=== PATIENT | female | born 1975 ===

== ENCOUNTER 2018-04-24 11:16 | Emergency (ER) | payer OTHER ==
[2018-04-24] MEDS ORDERED: Sodium Chloride 0.9% 1,000 ML IV STA ×2 (11:53→14:19)
--- NOTE | 2018-04-24 12:18 | ED PDOC ---
Arrival/HPI - General Chief Complaint: Abdominal Pain Time Seen by Provider: 04/24/18 11:42 Historian: Patient - History of Present Illness Narrative History of Present Illness (Text): 04/24/18 12:16 42yo female with pmhx of NIDDM, Asthma who present with complaint of right flank pain with associated nausea, vomiting and diarrhea x 3days. Notes that the last episode of diarrhea was 3days ago and vomiting was yesterday. Reports urinary frequency and pressure with urination. Denies fever,r chills, chest pain , SOB, hematuria, vaginal discharge, any other complaint. Past Medical History - Provider Review Nursing Documentation Reviewed: Yes - Infectious Disease Hx of Infectious Diseases: None - Reproductive Menopause: No - Cardiac Hx Cardiac Disorders: No - Pulmonary Hx Asthma: Yes - Hematological/Oncological Hx Anemia: Yes Other/Comment: sickle cell trait - Psychiatric Hx Substance Use: No - Surgical History Hx Section: Yes - Anesthesia Hx Anesthesia: Yes Hx Anesthesia Reactions: No Family/Social History - Physician Review Nursing Documentation Reviewed: Yes Family/Social History: Unknown Family HX Smoking Status: Unknown If Ever Smoked Hx Alcohol Use: No Hx Substance Use: No Allergies/Home Meds Allergies/Adverse Reactions: Allergies banana Allergy (Verified 04/24/18 11:35) RASH lamotrigine [From Lamictal] Allergy (Verified 04/24/18 11:35) RASH Review of Systems - Physician Review All systems were reviewed & negative as marked: Yes - Review of Systems Constitutional: Normal Eyes: Normal ENT: Normal Respiratory: Normal Cardiovascular: Normal Gastrointestinal: Abdominal Pain, Diarrhea, Nausea, Vomiting. absent: Constipation, Hematemesis Genitourinary Female: Dysuria, Frequency. absent: Hematuria Musculoskeletal: Normal Skin: Normal Neurological: Normal Endocrine: Normal Hemo/Lymphatic: Normal Psychiatric: Normal Physical Exam Vital Signs Reviewed: Yes Vital Signs Temp Pulse Resp BP Pulse Ox 04/24/18 16:32 98.0 F 89 16 122/83 96 04/24/18 16:31 98.0 F 89 18 122/83 96 04/24/18 11:30 98.6 F 112 H 18 150/92 H 99 Temperature: Afebrile Blood Pressure: Normal Pulse: Tachycardic Respiratory Rate: Normal Appearance: Positive for: Well-Appearing, Non-Toxic, Comfortable Pain Distress: None Mental Status: Positive for: Alert and Oriented X 3 - Systems Exam Head: Present: Atraumatic, Normocephalic Pupils: Present: PERRL Extroacular Muscles: Present: EOMI Conjunctiva: Present: Normal Mouth: Present: Moist Mucous Membranes Neck: Present: Normal Range of Motion Respiratory/Chest: Present: Clear to Auscultation, Good Air Exchange. No: Respiratory Distress, Accessory Muscle Use Cardiovascular: Present: Regular Rate and Rhythm, Normal S1, S2. No: Murmurs Abdomen: Present: Tenderness (Right flank), Other (soft). No: Distention, Peritoneal Signs, Rebound, Guarding, McBurney's Point Tender, Rovsing's Sign Present Back: Present: Normal Inspection. No: CVA Tenderness Upper Extremity: Present: Normal Inspection. No: Cyanosis, Edema Lower Extremity: Present: Normal Inspection. No: Edema Neurological: Present: GCS=15, CN II-XII Intact, Speech Normal Skin: Present: Warm, Dry, Normal Color. No: Rashes Psychiatric: Present: Alert, Oriented x 3, Normal Insight, Normal Concentration Medical Decision Making ED Course and Treatment: 04/24/18 20:31 PT presented for stated history. She noted that she have not taken any hypoglycemic for months now. States she stopped when she lost her insurance and recently obtain a new insurance and new PCP. States the PCP recently did blood work to determine if she needs hypoglycemics. She was hemodyanmcially stable in ED. Lab was ordered and reviewed and hyperglycemia was notes. She was hydrated with 2l of NS and 18units of Regular insulin was given. On re evaluation her FS improved. She had UTI and Keflex was given. She was referred to her PMD. Metformin 750mg ER rx given. She was advised to check her BS daily before taking her hypoglycemics. Referred to her PMD. CT was done to r/o renal colic. Abdominal/Pelvic CT IMPRESSION: No acute intra-abdominal findings. No evidence of urolithiasis - Lab Interpretations Lab Results: 04/24/18 12:30 04/24/18 12:30 Lab Results 04/24/18 16:04: POC Glucose (mg/dL) 289 H 04/24/18 14:18: POC Glucose (mg/dL) 393 H 04/24/18 12:30: Urine Color Yellow, Urine Appearance Sl cloudy, Urine pH 6.0, Ur Specific [place] <= 1.005, Urine Protein Negative, Urine Glucose (UA) >=1000 , Urine Ketones Negative, Urine Blood Trace-intact H, Urine Nitrate Positive H, Urine Bilirubin Negative, Urine Urobilinogen 0.2, Ur Leukocyte Esterase Negative , Urine RBC 0 - 2, Urine WBC 2 - 5, Urine Bacteria Many 04/24/18 12:30: Sodium 133, Potassium 5.0, Chloride 97 L, Carbon Dioxide 23, Anion Gap 19, BUN 5 L, Creatinine 0.4 L, Est GFR ( Amer) > 60, Est GFR ( Non-Af Amer) > 60, Random Glucose 564 H*, Calcium 9.1, Magnesium 2.0, Total Bilirubin 1.0, AST 40 H, ALT 17, Alkaline Phosphatase 123, Total Protein 7.9, Albumin 4.0, Globulin 3.9, Albumin/Globulin Ratio 1.0 L, Lipase 35 04/24/18 12:30: PT 10.9, INR 0.95, APTT 27.0 04/24/18 12:30: WBC 6.4, RBC 4.62, Hgb 12.4, Hct 34.3 L, MCV 74.2 L, MCH 26.8, MCHC 36.2, RDW 14.0, Plt Count 291, MPV 9.7, Gran % 64.1, Lymph % (Auto) 22.9, Mcmullen % (Auto) 7.2 H, Eos % (Auto) 5.5 H, Baso % (Auto) 0.3, Gran # 4.09, Lymph # (Auto) 1.5, Mcmullen # (Auto) 0.5, Eos # (Auto) 0.4, Baso # (Auto) 0.02 - RAD Interpretation Radiology Orders: 04/24/18 11:53 ABD & PELVIS W/O PO OR IV CONT [CT] Stat - Medication Orders Current Medication Orders: Discontinued Medications Cephalexin Monohydrate (Keflex) 500 mg PO STAT STA PRN Reason: Protocol Stop: 04/24/18 13:50 Last Admin: 04/24/18 14:52 Dose: 500 mg Famotidine (Pepcid) 20 mg IVP STAT STA Stop: 04/24/18 11:54 Last Admin: 04/24/18 12:33 Dose: 20 mg IVP Administration Document 04/24/18 12:33 HI (Rec: 04/24/18 12:33 HI [id number]) Charges for Administration # of IVP Administrations 1 Sodium Chloride (Sodium Chloride 0.9%) 1,000 mls @ 1,000 mls/hr IV .Q1H STA Stop: 04/24/18 12:52 Last Admin: 04/24/18 12:32 Dose: 1,000 mls/hr eMAR Start Stop Document 04/24/18 12:32 HI (Rec: 04/24/18 12:32 HI [id number]) Intravenous Solution Start Date 04/24/18 Start Time 12:32 Sodium Chloride (Sodium Chloride 0.9%) 1,000 mls @ 999 mls/hr IV .Q1H1M STA Stop: 04/24/18 15:19 Last Admin: 04/24/18 14:30 Dose: 999 mls/hr eMAR Start Stop Document 04/24/18 14:30 HI (Rec: 04/24/18 14:51 HI [id number]) Intravenous Solution Start Date 04/24/18 Start Time 14:30 Insulin Human Regular (Humulin R) 12 units IVP ONCE STA Stop: 04/24/18 13:04 Last Admin: 04/24/18 13:19 Dose: 12 units MAR Blood Glucose Document 04/24/18 13:19 HI (Rec: 04/24/18 13:19 HI [id number]) Blood Glucose Finger Stick Blood Glucose (70-120) 564 IVP Administration Document 04/24/18 13:19 HI (Rec: 04/24/18 13:19 HI [id number]) Charges for Administration # of IVP Administrations 1 Insulin Human Regular (Humulin R) 6 units IVP ONCE STA Stop: 04/24/18 14:20 Last Admin: 04/24/18 14:52 Dose: 6 units MAR Blood Glucose Document 04/24/18 14:52 HI (Rec: 04/24/18 14:52 HI [id number]) Blood Glucose Finger Stick Blood Glucose (70-120) 393 IVP Administration Document 04/24/18 14:52 HI (Rec: 04/24/18 14:52 HI [id number]) Charges for Administration # of IVP Administrations 1 Ketorolac Tromethamine (Toradol) 30 mg IVP STAT STA Stop: 04/24/18 11:54 Last Admin: 04/24/18 12:32 Dose: 30 mg MAR Pain Assessment Document 04/24/18 12:32 HI (Rec: 04/24/18 12:33 HI [id number]) Pain Reassessment Is this a pain reassessment? No Sleep Is patient sleeping during reassessment? No Presence of Pain Presence of Pain Yes Location Pain Location Body Site Abdomen Description Description Constant Intensity of Pain at present 6 Acceptable Level of Pain 0 Pain Behavior Facial Grimacing IVP Administration Document 04/24/18 12:32 HI (Rec: 04/24/18 12:33 HI [id number]) Charges for Administration # of IVP Administrations 1 Re-Assess: MAR Pain Assessment Document 04/24/18 13:32 HI (Rec: 04/24/18 14:52 HI [id number]) Pain Reassessment Is this a pain reassessment? Yes Sleep Is patient sleeping during reassessment? No Presence of Pain Presence of Pain No Ondansetron HCl (Zofran Inj) 4 mg IVP STAT STA Stop: 04/24/18 11:54 Last Admin: 04/24/18 12:33 Dose: 4 mg IVP Administration Document 04/24/18 12:33 HI (Rec: 04/24/18 12:33 HI [id number]) Charges for Administration # of IVP Administrations 1 Phenazopyridine HCl (Pyridium) 200 mg PO STAT STA Stop: 04/24/18 13:50 Last Admin: 04/24/18 14:52 Dose: 200 mg Disposition/Present on Arrival - Present on Arrival Any Indicators Present on Arrival: No History of DVT/PE: No History of Uncontrolled Diabetes: No Urinary Catheter: No History of Decub. Ulcer: No History Surgical Site Infection Following: None - Disposition Have Diagnosis and Disposition been Completed?: Yes Diagnosis: Hyperglycemia, UTI (urinary tract infection) Disposition: HOME/ ROUTINE Disposition Time: 16:10 Patient Plan: Discharge Condition: STABLE Discharge Instructions (ExitCare): Hyperglycemia, Adult, Urinary Tract Infection, Adult (DC) Additional Instructions: Follow up with your doctor/clinic Return to ED for any new symptoms Prescriptions: Cephalexin [Keflex] 500 mg PO TID #21 capsule MetFORMIN ER [Glucophage XR] 750 mg PO BID #30 ter Phenazopyridine [Pyridium] 200 mg PO TID #6 tab Referrals: Penny Cadena MD [Primary Care Provider] - Follow up with primary Forms: [employer] (Bulgarian)
[2018-04-24 12:33] LABS: BASO # 0.02 K/mm3 (0.0-2.0); BASO % 0.3 % (0.0-3.0); EOS # 0.4 (0.0-0.7); EOS % 5.5 % (1.5-5.0); GRAN # 4.09 (1.4-6.5); GRAN % 64.1 % (50.0-68.0); HEMOGLOBIN 12.4 g/dL (12.0-16.0); LYMPH # 1.5 (1.2-3.4); LYMPH % 22.9 % (22.0-35.0); MEAN CELL VOLUME 74.2 fl (80.0-105.0); MEAN CORPUSCULAR HEMOGLOBIN 26.8 pg (25.0-35.0); MEAN CORPUSCULAR HGB CONC 36.2 g/dl (31.0-37.0); MEAN PLATELET VOLUME 9.7 fl (7.0-11.0); MONO # 0.5 (0.1-0.6); MONO % 7.2 % (1.0-6.0); RBC 4.62 10^6/uL (3.5-6.1); WHITE BLOOD COUNT 6.4 10^3/ul (4.5-11.0)
[2018-04-24 12:34] LABS: URINE BILIRUBIN NEGATIVE (NEGATIVE); URINE BLOOD TRACE-INTACT (NEGATIVE); URINE GLUCOSE (UA) >=1000 mg/dL (NEGATIVE); URINE LEUKOCYTE ESTERASE NEGATIVE Leu/uL (NEGATIVE); URINE PROTEIN NEGATIVE mg/dL (<30 mg/dL); URINE UROBILINOGEN 0.2 E.U./dL (<1 E.U./dL)
[2018-04-24 12:37] LABS: URINE APPEARANCE SL CLOUDY (CLEAR); URINE COLOR YELLOW (YELLOW)
[2018-04-24 12:44] LABS: INR 0.95 (0.93-1.08); PROTHROMBIN TIME 10.9 SECONDS (9.4-12.5)
[2018-04-24 12:48] LABS: URINE RBC 0 - 2 /hpf (0-2)
[2018-04-24 12:49] LABS: URINE BACTERIA MANY (NEG)
[2018-04-24 12:56] LABS: ALT/SGPT 17 U/L (7-56); AST/SGOT 40 U/L (14-36); BLOOD UREA NITROGEN 5 mg/dL (7-21); CALCIUM 9.1 mg/dL (8.4-10.5); GFR AFRICAN-AMERICAN > 60; GFR NON-AFRICAN AMERICAN > 60; LIPASE 35 U/L (23-300)
[2018-04-24] MEDS ORDERED: Insulin Regular 1 UNITS/0.01 ML ML IVP STA ×2 (13:03→14:19)
--- NOTE | 2018-04-24 13:19 | CT ---
Date of service: 04/24/2018 PROCEDURE: CT Abdomen and Pelvis without intravenous contrast HISTORY: Right flank pain COMPARISON: None. TECHNIQUE: Without contrast.. Contrast dose: Radiation dose: Total exam DLP = 898 mGy-cm. This CT exam was performed using one or more of the following dose reduction techniques: Automated exposure control, adjustment of the mA and/or kV according to patient size, and/or use of iterative reconstruction technique. FINDINGS: LOWER THORAX: Unremarkable. LIVER: Unremarkable. No gross lesion or ductal dilatation. GALLBLADDER AND BILE DUCTS: Unremarkable. PANCREAS: Unremarkable. No gross lesion or ductal dilatation. SPLEEN: Unremarkable. ADRENALS: Unremarkable. No mass. KIDNEYS AND URETERS: Unremarkable. No hydronephrosis. No solid mass. VASCULATURE: Unremarkable. No aortic aneurysm. BOWEL: Unremarkable. No obstruction. No gross mural thickening. APPENDIX: Unremarkable. Normal appendix. PERITONEUM: Unremarkable. No free fluid. No free air. LYMPH NODES: Unremarkable. No enlarged lymph nodes. BLADDER: Unremarkable. REPRODUCTIVE: Unremarkable. BONES: No acute fracture. OTHER FINDINGS: None. IMPRESSION: No acute intra-abdominal findings. No evidence of urolithiasis
[2018-04-24 16:33] VITALS: BP 122/83; PULSE 89; RESP 16; TEMP 98; O2SAT 96
== END 2018-04-24 16:31 | disposition home or self-care (01) ==
LOC: ED 11:16
DX: N39.0 Urinary tract infection, site not specified (principal); E11.65 Type 2 diabetes mellitus with hyperglycemia; D57.3 Sickle-cell trait
CPT/HCPCS: 74176; 80053; 81001; 82948; 83690; 83735; 85025; 85610; 85730; 87086; 87181; 96374; 96375; 96376; 99283; J1885; J2405; J7030

== ENCOUNTER 2018-05-09 21:56 | Emergency (ER) | payer OTHER ==
[2018-05-09 22:11] VITALS: TEMP 98.6
--- NOTE | 2018-05-09 22:23 | ED PDOC ---
Arrival/HPI - General Chief Complaint: Bite Time Seen by Provider: 05/09/18 22:09 Historian: Patient - History of Present Illness Narrative History of Present Illness (Text): 05/09/18 22:28 A 42 year old female, whose past medical history includes diabetes and asthma, presents to the emergency department with a complaint of left TMJ pain that began today. Patient reports that it feels like her jaw is going to give out when she opens her mouth. She notes that she had an infection that developed on the posterior aspect of the neck from what she was told was a spider bite about 2 weeks ago. She notes that she completed a course of antibiotics and steroids prescribed by her PMD. She notes that the infection has resolved. The patient denies fevers, chills, headache, dizziness, chest pain, shortness of breath, dyspnea on exertion, cough, URI, ear pain, rash, difficulty swallowing, neck pain, or any other complaint. PMD: Dr. Cadena Time/Duration: Other (Today) Symptom Onset: Sudden Symptom Course: Unchanged Activities at Onset: Rest, Light Context: Home Past Medical History - Provider Review Nursing Documentation Reviewed: Yes - Infectious Disease Hx of Infectious Diseases: None - Cardiac Hx Cardiac Disorders: No - Pulmonary Hx Respiratory Disorders: Yes Hx Asthma: Yes - Endocrine/Metabolic Hx Endocrine Disorders: Yes Hx Diabetes Mellitus Type 2: Yes - Hematological/Oncological Hx Blood Disorders: Yes Hx Anemia: Yes Hx Sickle Cell Disease: Yes Other/Comment: sickle cell trait - Psychiatric Hx Substance Use: No - Surgical History Hx Section: Yes (x3) - Anesthesia Hx Anesthesia: Yes Hx Anesthesia Reactions: No Family/Social History - Physician Review Nursing Documentation Reviewed: Yes Family/Social History: No Known Family HX Smoking Status: Never Smoked Hx Alcohol Use: Yes Frequency of alcohol use: Socially Hx Substance Use: No Allergies/Home Meds Allergies/Adverse Reactions: Allergies banana Allergy (Verified 04/24/18 11:35) RASH lamotrigine [From Lamictal] Allergy (Verified 04/24/18 11:35) RASH spider venom Adverse Reaction (Verified 05/09/18 22:12) SWELLING Review of Systems - Physician Review All systems were reviewed & negative as marked: Yes - Review of Systems Constitutional: absent: Fevers, Night Sweats ENT: TMJ Pain (Left sided TMJ pain). absent: Sore Throat Respiratory: absent: SOB, Cough Cardiovascular: absent: Chest Pain, BOSS Gastrointestinal: absent: Abdominal Pain, Stool Changes, Diarrhea, Nausea, Vomiting Genitourinary Female: absent: Urine Output Changes Musculoskeletal: absent: Back Pain, Neck Pain Skin: absent: Rash Neurological: absent: Headache, Dizziness Physical Exam Vital Signs Reviewed: Yes Vital Signs Temp Pulse Resp BP Pulse Ox 05/09/18 22:36 88 18 140/86 100 05/09/18 22:07 98.6 F 107 H 20 127/95 H 96 Temperature: Afebrile Blood Pressure: Hypertensive Pulse: Tachycardic Respiratory Rate: Normal Appearance: Positive for: Well-Appearing, Non-Toxic, Comfortable Pain Distress: None Mental Status: Positive for: Alert and Oriented X 3 - Systems Exam Head: Present: Atraumatic, Normocephalic Pupils: Present: PERRL Extroacular Muscles: Present: EOMI Conjunctiva: Present: Normal. No: Injected, Icteric Ears: Present: Normal, NORMAL TM, Normal Canal. No: Erythema, TM Bulging Mouth: Present: Moist Mucous Membranes, Other (Left TMJ tenderness. ) Pharnyx: Present: Normal. No: ERYTHEMA, EXUDATE Neck: Present: Normal Range of Motion. No: Meningeal Signs, MIDLINE TENDERNESS , Paraspinal Tenderness, Lymphadenopathy Respiratory/Chest: Present: Clear to Auscultation, Good Air Exchange. No: Respiratory Distress, Accessory Muscle Use Cardiovascular: Present: Regular Rate and Rhythm, Normal S1, S2. No: Murmurs Back: Present: Normal Inspection Upper Extremity: Present: Normal Inspection. No: Cyanosis, Edema Lower Extremity: Present: Normal Inspection. No: Edema Neurological: Present: GCS=15, CN II-XII Intact, Speech Normal Skin: Present: Warm, Dry, Normal Color. No: Rashes Psychiatric: Present: Alert, Oriented x 3, Normal Insight, Normal Concentration Medical Decision Making ED Course and Treatment: 05/09/18 22:18 Plan : - Naprosyn PO - Flexeril PO Patient instructed to follow-up with pmd in 1-2 days without fail. Advised to take medication as prescribed. Return to the emergency room at any time for any new or worsening symptoms. Patient states she fully agrees with and understands discharge instructions. States that she agrees with the plan and disposition. Verbalized and repeated discharge instructions and plan. I have given the patient opportunity to ask any additional questions. - Medication Orders Current Medication Orders: Discontinued Medications Cyclobenzaprine HCl (Flexeril) 10 mg PO STAT STA Stop: 05/09/18 22:25 Last Admin: 05/09/18 22:30 Dose: 10 mg Naproxen (Anaprox Ds) 550 mg PO ONCE STA Stop: 05/09/18 22:25 Last Admin: 05/09/18 22:30 Dose: 550 mg - PA / [employer] / Resident Statement MD/DO has reviewed & agrees with the documentation as recorded. - Scribe Statement The provider has reviewed the documentation as recorded by the Scribe Maisha Strong Provider Scribe Attestation: All medical record entries made by the Scribe were at my direction and personally dictated by me. I have reviewed the chart and agree that the record accurately reflects my personal performance of the history, physical exam, medical decision making, and the department course for this patient. I have also personally directed, reviewed, and agree with the discharge instructions and disposition. Disposition/Present on Arrival - Present on Arrival Any Indicators Present on Arrival: No History of DVT/PE: No History of Uncontrolled Diabetes: No Urinary Catheter: No History of Decub. Ulcer: No History Surgical Site Infection Following: None - Disposition Have Diagnosis and Disposition been Completed?: Yes Diagnosis: TMJ arthralgia Disposition: HOME/ ROUTINE Disposition Time: 22:15 Patient Plan: Discharge Condition: STABLE Discharge Instructions (ExitCare): Temporomandibular Joint (TMJ) Disorders Additional Instructions: Thank you for letting us take care of you today. You were treated for TMJ. The emergency medical care you received today was directed at your acute symptoms. If you were prescribed any medication, please fill it and take as directed. It may take several days for your symptoms to resolve. Return to the Emergency Department if your symptoms worsen, do not improve, or if you have any other problems. Please contact your doctor in 2 days for re-evaluation and follow up. Bring any paperwork you were given at discharge with you along with any medications you are taking to your follow up visit. Our treatment cannot replace ongoing medical care by a primary care provider (PCP) outside of the emergency department. Thank you for allowing the [facility] team to be part of your care today. Prescriptions: Cyclobenzaprine [Cyclobenzaprine HCl] 10 mg PO TID PRN #15 tab PRN Reason: Muscle Spasm Naproxen 500 mg PO BID #30 tab Forms: [employer] (Salvadorean)
[2018-05-09] MEDS ORDERED: Naproxen 550 mg Tab PO STA (22:24)
[2018-05-09 22:37] VITALS: BP 140/86; PULSE 88; RESP 18; O2SAT 100
== END 2018-05-09 22:36 | disposition home or self-care (01) ==
LOC: ED 21:56
DX: M26.622 Arthralgia of left temporomandibular joint (principal)

== ENCOUNTER 2018-07-18 08:28 | Observation (INO) | payer OTHER ==
[2018-07-18] MEDS ORDERED: Sodium Chloride 0.9% 1,000 ML IV STA ×2 (09:09→10:22)
[2018-07-18] MEDS ORDERED: Morphine 2 mg/ml ISec IVP STA (09:10)
--- NOTE | 2018-07-18 09:15 | ED PDOC ---
Arrival/HPI - General Historian: Patient - History of Present Illness Narrative History of Present Illness (Text): 07/18/18 09:10 42yr old female with hx of DM presents today with 3 day history of worsening abdominal pain, bloating, nausea and vomiting. pt denies diarrhea. no cp or sob. pt denies back pain. pt denies dizziness or weakness. pt denies fever/chills. pt states she has been vomiting frequently and her sugars have been running in the 500's. pt states she took her insulin today. pt describes abdominal pain as a achy bloating pain located in the upper abdomen that is non radiating. Time/Duration: Other (3 days) Symptom Onset: Gradual Symptom Course: Worsening Quality: Aching, Fullness Severity Level: Moderate <Tavia Metz - Last Filed: 07/18/18 14:11> <Chinedu Acosta - Last Filed: 07/18/18 16:54> - General Chief Complaint: Abdominal Pain Time Seen by Provider: 07/18/18 08:59 Past Medical History - Provider Review Nursing Documentation Reviewed: Yes - Travel History Have you recently traveled outside [place] w/in the past 3 mons?: No - Infectious Disease Hx of Infectious Diseases: None - Tetanus Immunization Tetanus Immunization: Unknown - Reproductive Menopause: No - Cardiac Hx Cardiac Disorders: No - Pulmonary Hx Respiratory Disorders: Yes Hx Asthma: Yes - Endocrine/Metabolic Hx Endocrine Disorders: Yes Hx Diabetes Mellitus Type 2: Yes - Hematological/Oncological Hx Blood Disorders: Yes Hx Anemia: Yes Hx Sickle Cell Disease: Yes Other/Comment: sickle cell trait - Psychiatric Hx Substance Use: No - Surgical History Hx Section: Yes (x3) - Anesthesia Hx Anesthesia: Yes Hx Anesthesia Reactions: No <Tavia Metz - Last Filed: 07/18/18 14:11> Family/Social History - Physician Review Nursing Documentation Reviewed: Yes Family/Social History: Unknown Family HX Smoking Status: Never Smoked Hx Alcohol Use: Yes Hx Substance Use: No <Tavia Metz - Last Filed: 07/18/18 14:11> Allergies/Home Meds <Tavia Metz - Last Filed: 07/18/18 14:11> <Chinedu Acosta - Last Filed: 07/18/18 16:54> Allergies/Adverse Reactions: Allergies banana Allergy (Verified 04/24/18 11:35) RASH lamotrigine [From Lamictal] Allergy (Verified 07/18/18 08:47) RASH spider venom Adverse Reaction (Verified 07/18/18 08:47) SWELLING Home Medications: Home Meds Medication Instructions Recorded Confirmed Insulin Aspart, Recombinant 4 unit SC TID 07/18/18 07/18/18 [Novolog] Sitagliptin Phos/Metformin HCl 1 each PO BID 07/18/18 07/18/18 [Janumet 50-1,000 mg Tablet] Review of Systems - Review of Systems Constitutional: Fatigue. absent: Fevers Respiratory: absent: SOB, Cough Cardiovascular: absent: Chest Pain, Palpitations Gastrointestinal: Abdominal Pain, Nausea, Vomiting. absent: Constipation, Diarrhea Genitourinary Female: absent: Dysuria, Frequency, Hematuria Musculoskeletal: absent: Arthralgias, Back Pain, Neck Pain Skin: absent: Rash, Pruritis Neurological: absent: Headache, Dizziness Psychiatric: absent: Anxiety, Depression <Azoia,Tavia T - Last Filed: 07/18/18 14:11> Physical Exam Vital Signs Reviewed: Yes Vital Signs Temp Pulse Resp BP Pulse Ox 07/18/18 08:42 98.7 F 105 H 18 116/78 99 Temperature: Afebrile Blood Pressure: Normal Pulse: Tachycardic Respiratory Rate: Normal Appearance: Positive for: Well-Appearing, Non-Toxic, Comfortable Pain Distress: None Mental Status: Positive for: Alert and Oriented X 3 Finger Stick Blood Glucose: 236 - Systems Exam Head: Present: Atraumatic Mouth: Present: Moist Mucous Membranes Neck: Present: Normal Range of Motion Respiratory/Chest: Present: Clear to Auscultation, Good Air Exchange. No: Respiratory Distress, Accessory Muscle Use Cardiovascular: Present: Regular Rate and Rhythm, Normal S1, S2. No: Murmurs Abdomen: Present: Tenderness (+ epigastric, ruq,luq tenderness. ), Normal Bowel Sounds, Guarding (voluntary). No: Distention, Peritoneal Signs, Rebound, McBurney's Point Tender Back: Present: Normal Inspection. No: CVA Tenderness, Midline Tenderness, Paraspinal Tenderness Upper Extremity: Present: Normal ROM Lower Extremity: Present: Normal ROM. No: Edema Neurological: Present: GCS=15, Speech Normal Skin: Present: Warm, Dry, Normal Color. No: Rashes Psychiatric: Present: Alert, Oriented x 3 <Tavia Metz - Last Filed: 07/18/18 14:11> Vital Signs Temp Pulse Resp BP Pulse Ox 07/18/18 13:00 89 18 113/76 100 07/18/18 08:42 98.7 F 105 H 18 116/78 99 <Chinedu Acosta - Last Filed: 07/18/18 16:54> Medical Decision Making ED Course and Treatment: 07/18/18 09:13 Patient is nontoxic well appearing with stable vital signs presenting with upper abdominal pain pt given reglan for nausea/ morphine for pain. CBC: wnl CMP: wnl Lipase: wnl trop; wnl EKG: Sinus tachycardia at [address] elevations QTC 484 Urinalysis: Positive leukocytes CAT scan:FINDINGS: LOWER THORAX: Unremarkable. LIVER: Unremarkable. No gross lesion or ductal dilatation. GALLBLADDER AND BILE DUCTS: Unremarkable. PANCREAS: Unremarkable. No gross lesion or ductal dilatation. SPLEEN: Unremarkable. ADRENALS: Unremarkable. No mass. KIDNEYS AND URETERS: Unremarkable. No hydronephrosis. No solid mass. VASCULATURE: Unremarkable. No aortic aneurysm. BOWEL: Unremarkable. No obstruction. No gross mural thickening. APPENDIX: Normal appendix. PERITONEUM: Unremarkable. No free fluid. No free air. LYMPH NODES: Unremarkable. No enlarged lymph nodes. BLADDER: Unremarkable. REPRODUCTIVE: Unremarkable. BONES: No acute fracture. OTHER FINDINGS: None. IMPRESSION: No acute findings Patient reassessment: pt feeling better. attempted PO challenge. while in ER; pt vomited after attempted PO challenge. zofran added. pt states pain has returned. Leukocytes on a UA we will start Rocephin for urinary tract infection Discussed all results with patient in depth Patient with a history of gastroparesis complaining of abdominal pain nausea and vomiting. Unable to tolerate by mouth fluids in the emergency room [facility] and [facility]. Impression: Abdominal pain, nausea/vomiting, hyperglycemia admit observational status to med/sug Reassessment Condition: Re-examined, Improving,but remains with symptoms - RAD Interpretation Radiology Orders: 07/18/18 09:09 ABD & PELVIS IV CONTRAST ONLY [CT] Stat CHEST PORTABLE [RAD] Stat <Tavia Metz - Last Filed: 07/18/18 14:11> ED Course and Treatment: 07/18/18 16:54 The documented history was done by the physician perfect binder operator. The documented physical exam was done by the physician perfect binder operator. The documented procedures were done by the physician perfect binder operator. I was available for consultation during the PA/BOOM MAN evaluation. The chart was reviewed by me, and I agree with the management and plan except what is documented in my notes. - Lab Interpretations Lab Results: 07/18/18 09:35 07/18/18 09:35 Lab Results 07/18/18 09:35: WBC 8.2 D, RBC 4.97, Hgb 12.9, Hct 37.5, MCV 75.5 L, MCH 26.0, MCHC 34.4, RDW 14.1, Plt Count 339, MPV 9.5, Gran % 68.4 H, Lymph % (Auto) 22.5, [place] % (Auto) 3.8, Eos % (Auto) 5.1 H, Baso % (Auto) 0.2, Gran # 5.59, Lymph # (Auto) 1.8, [place] # (Auto) 0.3, Eos # (Auto) 0.4, Baso # (Auto) 0.02 07/18/18 09:35: Sodium 136, Potassium 3.8, Chloride 103, Carbon Dioxide 23, Anio n Gap 14, BUN 8, Creatinine 0.5 L, Est GFR ( Amer) > 60, Est GFR (Non-Af Amer) > 60, Random Glucose 243 H, Calcium 8.9, Total Bilirubin 0.9, AST 20, ALT 24, Alkaline Phosphatase 77, Lactate Dehydrogenase 370, Total Creatine Kinase 94, Troponin I < 0.01, Total Protein 7.6, Albumin 4.0, Globulin 3.5, Albumin/Globulin Ratio 1.1, Lipase 27 07/18/18 09:15: Urine Color Yellow, Urine Appearance Turbid, Urine pH 6.0, Ur Sp ecific [place] 1.025, Urine Protein 100 H, Urine Glucose (UA) 500 H, Urine Ketones 40 H, Urine Blood Small H, Urine Nitrate Negative, Urine Bilirubin Negative, Urine Urobilinogen 0.2, Ur Leukocyte Esterase Trace H, Urine RBC 0 - 2, Urine WBC 5 - 10, Ur Epithelial Cells 4 - 5, Urine Bacteria Few 07/18/18 08:50: POC Glucose (mg/dL) 236 H - RAD Interpretation Radiology Orders: 07/18/18 09:09 ABD & PELVIS IV CONTRAST ONLY [CT] Stat CHEST PORTABLE [RAD] Stat - Medication Orders Current Medication Orders: Albuterol/Ipratropium (Duoneb 3 Mg/0.5 Mg (3 Ml) Ud) 3 ml IH [id number] PRN PRN Reason: Shortness of Breath Dextrose (Dextrose 50% Inj) 0 ml IV STAT PRN; Protocol PRN Reason: Hypoglycemia Protocol Dextrose (Dextrose 5% In Water 1000 Ml) 1,000 mls @ 0 mls/hr IV .Q0M PRN; Protocol PRN Reason: Hypoglycemia Protocol Ceftriaxone Sodium (Rocephin 1 Gram Ivpb) 1 gm in 100 mls @ 100 mls/hr IVPB DAILY DOMINIQUE; Protocol Sodium Chloride (Sodium Chloride 0.9%) 1,000 mls @ 100 mls/hr IV .Q10H DOMINIQUE Last Admin: 07/18/18 16:06 Dose: 100 mls/hr eMAR Start Stop Document 07/18/18 16:06 [facility] (Rec: 07/18/18 16:06 [facility]) Intravenous Solution Start Date 07/18/18 Start Time 16:06 Insulin Human Regular (Humulin R Med) 0 units SC ACHS DOMINIQUE; Protocol Ondansetron HCl (Zofran Inj) 4 mg IVP Q4H PRN PRN Reason: Nausea/Vomiting Pantoprazole Sodium (Protonix Ec Tab) 40 mg PO 0600 DOMINIQUE Discontinued Medications Sodium Chloride (Sodium Chloride 0.9%) 1,000 mls @ 999 mls/hr IV .Q1H1M STA Stop: 07/18/18 10:09 Last Admin: 07/18/18 09:27 Dose: 999 mls/hr eMAR Start Stop Document 07/18/18 09:27 EQ (Rec: 07/18/18 09:27 [email or web address] Intravenous Solution Start Date 07/18/18 Start Time 09:27 Sodium Chloride (Sodium Chloride 0.9%) 1,000 mls @ 999 mls/hr IV .Q1H1M STA Stop: 07/18/18 11:22 Last Admin: 07/18/18 11:24 Dose: 999 mls/hr eMAR Start Stop Document 07/18/18 11:24 EQ (Rec: 07/18/18 11:24 EQ [id number]) Intravenous Solution Start Date 07/18/18 Start Time 11:24 Ceftriaxone Sodium (Rocephin 1 Gram Ivpb) 1 gm in 100 mls @ 200 mls/hr IVPB STAT STA; Protocol Stop: 07/18/18 13:50 Last Admin: 07/18/18 14:33 Dose: 200 mls/hr eMAR Start Stop Document 07/18/18 14:33 EQ (Rec: 07/18/18 14:34 EQ [id number]) Intravenous Solution Start Date 07/18/18 Start Time 14:34 Metoclopramide HCl (Reglan) 10 mg IVP STAT STA Stop: 07/18/18 09:10 Last Admin: 07/18/18 09:27 Dose: 10 mg IVP Administration Document 07/18/18 09:27 EQ (Rec: 07/18/18 09:27 EQ [email or web address] Charges for Administration # of IVP Administrations 1 Morphine Sulfate (Morphine) 2 mg IVP STAT STA Stop: 07/18/18 09:11 Last Admin: 07/18/18 09:28 Dose: 2 mg MAR Pain Assessment Document 07/18/18 09:28 EQ (Rec: 07/18/18 09:28 EQ [email or web address] Pain Reassessment Is this a pain reassessment? No Sleep Is patient sleeping during reassessment? No Presence of Pain Presence of Pain Yes IVP Administration Document 07/18/18 09:28 EQ (Rec: 07/18/18 09:28 EQ [email or web address] Charges for Administration # of IVP Administrations 1 Ondansetron HCl (Zofran Inj) 4 mg IVP STAT STA Stop: 07/18/18 12:37 Last Admin: 07/18/18 13:04 Dose: 4 mg IVP Administration Document 07/18/18 13:04 EQ (Rec: 07/18/18 13:04 EQ [id number]) Charges for Administration # of IVP Administrations 1 <Chinedu Acosta - Last Filed: 07/18/18 16:54> Disposition/Present on Arrival - Present on Arrival Any Indicators Present on Arrival: No History of DVT/PE: No History of Uncontrolled Diabetes: No Urinary Catheter: No History of Decub. Ulcer: No History Surgical Site Infection Following: None - Disposition Have Diagnosis and Disposition been Completed?: Yes Disposition Time: 11:30 Patient Plan: Observation <Tavia Metz - Last Filed: 07/18/18 14:11> <Chinedu Acosta - Last Filed: 07/18/18 16:54> - Disposition Diagnosis: Abdominal pain, Intractable vomiting with nausea Disposition: HOSPITALIZED Patient Problems: Current Active Problems Problem Status Onset Abdominal pain Acute Intractable vomiting with nausea Acute Condition: FAIR
[2018-07-18] MEDS ORDERED: Iohexol 350 MG/100 ML VIAL ONE (09:16)
[2018-07-18 10:01] LABS: BASO # 0.02 K/mm3 (0.0-2.0); BASO % 0.2 % (0.0-3.0); EOS # 0.4 (0.0-0.7); EOS % 5.1 % (1.5-5.0); GRAN # 5.59 (1.4-6.5); GRAN % 68.4 % (50.0-68.0); HEMOGLOBIN 12.9 g/dL (12.0-16.0); LYMPH # 1.8 (1.2-3.4); LYMPH % 22.5 % (22.0-35.0); MEAN CELL VOLUME 75.5 fl (80.0-105.0); MEAN CORPUSCULAR HGB CONC 34.4 g/dl (31.0-37.0); MEAN PLATELET VOLUME 9.5 fl (7.0-11.0); MONO # 0.3 (0.1-0.6); MONO % 3.8 % (1.0-6.0); RBC 4.97 10^6/uL (3.5-6.1); RED CELL DISTRIBUTION WIDTH 14.1 % (11.5-14.5); WHITE BLOOD COUNT 8.2 10^3/ul (4.5-11.0)
[2018-07-18 10:06] LABS: BLOOD UREA NITROGEN 8 mg/dL (7-21); CALCIUM 8.9 mg/dL (8.4-10.5); GFR NON-AFRICAN AMERICAN > 60
[2018-07-18 10:07] LABS: ALB/GLOB RATIO 1.1 (1.1-1.8); ALT/SGPT 24 U/L (7-56); AST/SGOT 20 U/L (14-36); LIPASE 27 U/L (23-300)
[2018-07-18 10:09] LABS: URINE BILIRUBIN NEGATIVE (NEGATIVE); URINE BLOOD SMALL (NEGATIVE); URINE GLUCOSE (UA) 500 mg/dL (NEGATIVE); URINE LEUKOCYTE ESTERASE TRACE Leu/uL (NEGATIVE); URINE PROTEIN 100 mg/dL (<30 mg/dL); URINE UROBILINOGEN 0.2 E.U./dL (<1 E.U./dL)
[2018-07-18 10:12] LABS: URINE APPEARANCE TURBID (CLEAR); URINE COLOR YELLOW (YELLOW)
[2018-07-18 10:13] LABS: URINE RBC 0 - 2 /hpf (0-2)
[2018-07-18 10:14] LABS: URINE BACTERIA FEW (NEG)
[2018-07-18 10:18] LABS: TROPONIN I < 0.01 ng/mL
--- NOTE | 2018-07-18 10:51 | CT ---
Date of service: 07/18/2018 PROCEDURE: CT Abdomen and Pelvis with contrast HISTORY: abd pain COMPARISON: 04/24/2018 TECHNIQUE: Contrast dose: 100 cc of Omni 350 Radiation dose: Total exam DLP = 815 mGy-cm. This CT exam was performed using one or more of the following dose reduction techniques: Automated exposure control, adjustment of the mA and/or kV according to patient size, and/or use of iterative reconstruction technique. FINDINGS: LOWER THORAX: Unremarkable. LIVER: Unremarkable. No gross lesion or ductal dilatation. GALLBLADDER AND BILE DUCTS: Unremarkable. PANCREAS: Unremarkable. No gross lesion or ductal dilatation. SPLEEN: Unremarkable. ADRENALS: Unremarkable. No mass. KIDNEYS AND URETERS: Unremarkable. No hydronephrosis. No solid mass. VASCULATURE: Unremarkable. No aortic aneurysm. BOWEL: Unremarkable. No obstruction. No gross mural thickening. APPENDIX: Normal appendix. PERITONEUM: Unremarkable. No free fluid. No free air. LYMPH NODES: Unremarkable. No enlarged lymph nodes. BLADDER: Unremarkable. REPRODUCTIVE: Unremarkable. BONES: No acute fracture. OTHER FINDINGS: None. IMPRESSION: No acute findings
--- NOTE | 2018-07-18 11:44 | RAD ---
Date of service: 07/18/2018 HISTORY: Abdominal pain COMPARISON: No prior. FINDINGS: LUNGS: The lungs are well inflated and clear. PLEURA: No significant pleural effusion identified, no pneumothorax apparent. CARDIOVASCULAR: Normal. OSSEOUS STRUCTURES: No significant abnormalities. VISUALIZED UPPER ABDOMEN: Normal. OTHER FINDINGS: None. IMPRESSION: No active pulmonary disease.
[2018-07-18] MEDS ORDERED: cefTRIAXone 1 gm 1 GM/100 ML BAG IVPB STA (13:21)
[2018-07-18] MEDS ORDERED: Dextrose 50% SYRINGE Inj (50 ml) IV PRN (14:40)
[2018-07-18] MEDS ORDERED: Albuterol-Ipratrop 3 mg / 0.5 (3 ml) UD IH PRN (14:40)
--- NOTE | 2018-07-18 14:50 | CP.PCM.HP ---
History of Present Illness - History of Present Illness History of Present Illness: 42 year old male with past medical history of DM and asthma presents to the hospital for abdominal pain for the past 2 weeks. Patient states there was no inciting event. Patient admits to worsening bloating over the past 2 weeks. Over last 2 days, patient admits to worsening abdominal pain accompanied by nausea and vomiting. Vomiting is nonbloody, nonbilious. Patient did not take any medication for it. During this time, patient states her glucose levels have been elevated. Patient states she is compliant with her medications at home. Patient also admits to increase urinary frequency, along with pain in her left flank. Denies chest pain, shortness of breath, fever, chills, changes in vision, numbness, weakness. PMH: As above Surgical Hx: x3 Family Hx: Father - prostate cancer, DM Social Hx: Occasional alcohol use. Denies tobacco or illicit drug use Allergies: Banana, Lamotrigine, Spider venom Medications: Pro-air, Albuterol, Insulin, Janumet Present on Admission - Present on Admission Any Indicators Present on Admission: No Review of Systems - Review of Systems Review of Systems: 12 point ROS as per HPI, otherwise negative Past Patient History - Infectious Disease Hx of Infectious Diseases: None - Tetanus Immunizations Tetanus Immunization: Unknown - Past Social History Smoking Status: Never Smoked - CARDIAC Hx Cardiac Disorders: No - PULMONARY Hx Respiratory Disorders: Yes Hx Asthma: Yes - ENDOCRINE/METABOLIC Hx Endocrine Disorders: Yes Hx Diabetes Mellitus Type 2: Yes - HEMATOLOGICAL/ONCOLOGICAL Hx Blood Disorders: Yes Hx Anemia: Yes Hx Sickle Cell Disease: Yes Other/Comment: sickle cell trait - PSYCHIATRIC Hx Substance Use: No - SURGICAL HISTORY Hx Section: Yes (x3) - ANESTHESIA Hx Anesthesia: Yes Hx Anesthesia Reactions: No Meds Allergies/Adverse Reactions: Allergies Allergy/AdvReac Type Severity Reaction Status Date / Time banana Allergy RASH Verified 04/24/18 11:35 lamotrigine [From Lamictal] Allergy RASH Verified 07/18/18 08:47 spider venom AdvReac SWELLING Verified 07/18/18 08:47 Physical Exam - Constitutional Appears: Non-toxic, No Acute Distress - Head Exam Head Exam: ATRAUMATIC, NORMAL INSPECTION, NORMOCEPHALIC - Eye Exam Eye Exam: EOMI, Normal appearance - ENT Exam ENT Exam: Mucous Membranes Moist, Normal Exam - Respiratory Exam Respiratory Exam: Clear to Auscultation Bilateral, NORMAL BREATHING PATTERN - Cardiovascular Exam Cardiovascular Exam: RRR, +S1, +S2 - GI/Abdominal Exam GI & Abdominal Exam: Hyperactive Bowel Sounds, Soft, Tenderness (Diffuse). absent: Guarding, Rebound - Extremities Exam Extremities exam: Positive for: normal inspection. Negative for: calf tenderness, pedal edema - Neurological Exam Neurological exam: Alert, CN II-XII Intact, Oriented x3 - Psychiatric Exam Psychiatric exam: Normal Affect, Normal Mood - Skin Skin Exam: Intact, Normal Color, Warm Results - Vital Signs Recent Vital Signs: Last Vital Signs Temp 98.7 F 07/18/18 08:42 Pulse 105 H 07/18/18 08:42 Resp 18 07/18/18 08:42 BP 116/78 07/18/18 08:42 Pulse Ox 99 07/18/18 08:42 - Labs Result Diagrams: 07/18/18 09:35 07/18/18 09:35 Labs: Laboratory Results - last 24 hr 07/18/18 07/18/18 07/18/18 08:50 09:15 09:35 WBC RBC Hgb Hct MCV MCH MCHC RDW Plt Count MPV Gran % Lymph % (Auto) [place] % (Auto) Eos % (Auto) Baso % (Auto) Gran # Lymph # (Auto) [place] # (Auto) Eos # (Auto) Baso # (Auto) Sodium 136 Potassium 3.8 Chloride 103 Carbon Dioxide 23 Anion Gap 14 BUN 8 Creatinine 0.5 L Est GFR ( Amer) > 60 Est GFR (Non-Af Amer) > 60 POC Glucose (mg/dL) 236 H Random Glucose 243 H Calcium 8.9 Total Bilirubin 0.9 AST 20 ALT 24 Alkaline Phosphatase 77 Lactate Dehydrogenase 370 Total Creatine Kinase 94 Troponin I < 0.01 Total Protein 7.6 Albumin 4.0 Globulin 3.5 Albumin/Globulin Ratio 1.1 Lipase 27 Urine Color Yellow Urine Appearance Turbid Urine pH 6.0 Ur Specific [place] 1.025 Urine Protein 100 H Urine Glucose (UA) 500 H Urine Ketones 40 H Urine Blood Small H Urine Nitrate Negative Urine Bilirubin Negative Urine Urobilinogen 0.2 Ur Leukocyte Esterase Trace H Urine RBC 0 - 2 Urine WBC 5 - 10 Ur Epithelial Cells 4 - 5 Urine Bacteria Few 07/18/18 09:35 WBC 8.2 D RBC 4.97 Hgb 12.9 Hct 37.5 MCV 75.5 L MCH 26.0 MCHC 34.4 RDW 14.1 Plt Count 339 MPV 9.5 Gran % 68.4 H Lymph % (Auto) 22.5 [place] % (Auto) 3.8 Eos % (Auto) 5.1 H Baso % (Auto) 0.2 Gran # 5.59 Lymph # (Auto) 1.8 [place] # (Auto) 0.3 Eos # (Auto) 0.4 Baso # (Auto) 0.02 Sodium Potassium Chloride Carbon Dioxide Anion Gap BUN Creatinine Est GFR ( Amer) Est GFR (Non-Af Amer) POC Glucose (mg/dL) Random Glucose Calcium Total Bilirubin AST ALT Alkaline Phosphatase Lactate Dehydrogenase Total Creatine Kinase Troponin I Total Protein Albumin Globulin Albumin/Globulin Ratio Lipase Urine Color Urine Appearance Urine pH Ur Specific [place] Urine Protein Urine Glucose (UA) Urine Ketones Urine Blood Urine Nitrate Urine Bilirubin Urine Urobilinogen Ur Leukocyte Esterase Urine RBC Urine WBC Ur Epithelial Cells Urine Bacteria Assessment & Plan - Assessment and Plan (Free Text) Plan: 42 year old female with past medical history of DM and Asthma presenting for intractable nausea and vomiting. Patient also found to have UTI on UA. CT abdomen/pelvis reviewed, no acute pathology. 1. Intractable nausea/vomiting May be secondary to gastroparesis Zofran NPO diet, liquid diet tomorrow AM Advance diet as tolerated NS @ 100 GI consult, Dr. Tubbs 2. UTI Rocephin Urine culture 3. DM ISS Glucose ACHS HgA1c ordered 4. Asthma Duonebs prn 5. Prophylaxis Protonix SCDs Melody, PGY-3
[2018-07-18 15:56] LABS: HDL CHOLESTEROL 23 mg/dL (29-60)
[2018-07-18] MEDS: Sodium Chloride 0.9% 1,000 ML IV SCH (16:06)
[2018-07-18 16:07] LABS: LDL CHOLESTEROL 34 mg/dL (0-129)
[2018-07-18] MEDS: Insulin Reg-MEDIUM-Coverage SC SCH ×2 (17:30→22:02)
[2018-07-18 22:39] VITALS: BMI 28.1
[2018-07-18] MEDS ORDERED: Pneumococcal 23-Valent Vaccine IM ONE (22:39)
[2018-07-18] MEDS ORDERED: Influenza Vaccine 60 mcg/0.5 mL SYR (4YR UP) IM ONE (22:39)
[2018-07-19] MEDS: Sodium Chloride 0.9% 1,000 ML IV SCH (01:49)
[2018-07-19] MEDS ORDERED: Pantoprazole 40 mg EC Tab PO SCH (06:00)
--- NOTE | 2018-07-19 06:39 | CARD ---
APPROVED REPORT Date of service: 07/18/2018 EKG Measurement Heart [id number] <Conclusion> Sinus tachycardia Rightward axis Borderline ECG
[2018-07-19 07:26] LABS: HEMOGLOBIN 11.1 g/dL (12.0-16.0); MEAN CORPUSCULAR HEMOGLOBIN 25.3 pg (25.0-35.0); MEAN CORPUSCULAR HGB CONC 33.3 g/dl (31.0-37.0); MEAN PLATELET VOLUME 9.1 fl (7.0-11.0); RBC 4.38 10^6/uL (3.5-6.1); RED CELL DISTRIBUTION WIDTH 14.1 % (11.5-14.5); WHITE BLOOD COUNT 6.1 10^3/ul (4.5-11.0)
[2018-07-19 07:38] LABS: ALBUMIN 3.2 g/dL (3.0-4.8); ALT/SGPT 21 U/L (7-56); AST/SGOT 33 U/L (14-36); BLOOD UREA NITROGEN 6 mg/dL (7-21); CALCIUM 8.2 mg/dL (8.4-10.5); GFR NON-AFRICAN AMERICAN > 60
[2018-07-19 08:16] LABS: HDL CHOLESTEROL 20 mg/dL (29-60)
[2018-07-19] MEDS: Insulin Reg-MEDIUM-Coverage SC SCH ×2 (08:17→11:53)
[2018-07-19 08:27] LABS: LDL CHOLESTEROL 39 mg/dL (0-129)
[2018-07-19 08:29] VITALS: BP 115/75; PULSE 87; RESP 18; TEMP 97.9; O2SAT 98
[2018-07-19] MEDS ORDERED: Potassium Chloride 20 mEq ER Tab PO ONE (08:31)
[2018-07-19] MEDS ORDERED: cefTRIAXone 1 gm 1 GM/100 ML BAG IVPB SCH (10:00)
--- NOTE | 2018-07-19 15:28 | CON ---
DATE: 07/19/2018 HISTORY OF PRESENT ILLNESS: I saw Ms. Leighton Butler this morning. She is a 42-year-old female with complaints of nausea, vomiting, abdominal pain, and diarrhea. She has a past medical history of diabetes and asthma. She indicated that she had a previous diagnosis of gastroparesis diagnosed by endoscopy, but no gastric emptying study. The patient indicated over the past 2 days prior to admission, increasing abdominal pain, but there was no rectal bleeding or hematemesis. Her sugars had been labile. PHYSICAL EXAMINATION: VITAL SIGNS: I reviewed this patient's vital signs. HEENT: Noncontributory except for dry mouth. LUNGS: Clear to auscultation. HEART: Regular rhythm. ABDOMEN: Soft. Mild tenderness in the epigastric area and the left upper quadrant. Imaging studies for this patient indicate no acute findings. Evaluation of the CT images indicates some food debris still left in the stomach. Pancreas within normal limits. She has substantial amount of stool noted in the area of the ascending and proximal transverse colon. She also has substantial amount of stool in the rectum. LABORATORY DATA: CBC noncontributory. CMP significant for substantial elevation of triglycerides level 885, cholesterol 214. Elevated blood sugars noted. OVERALL ASSESSMENT: This is a 42-year-old female with a history of diabetes, admitted with complaints of nausea, vomiting, and abdominal pain. The symptoms have resolved substantially. She has very little discomfort except very mildly in the epigastric area. The abdomen is not distended. Note that the patient does not practice acid reflux precautions. This was explained to her in detail at the bedside. She is at high risk for some degree of esophagitis and possibly an esophageal ulcer. The patient has elevated triglycerides and cholesterol. Note that the elevated triglycerides in the 800 range predispose to pancreatitis. The lipids must come under better control. The patient was eager about starting liquid diet which was ordered by house staff. We will continue on a current medication regimen as ordered. However, I am not sure what the antibiotic is used for. Romain Tubbs DO, PhD [place]
--- NOTE | 2018-07-19 17:33 | CP.PCM.DIS ---
<Jos Mckeonron - Last Filed: 07/19/18 17:34> Provider - Provider Date of Admission: 07/18/18 12:40 Attending physician: Matthew Nguyen MD Primary care physician: Fani Morse MD Time Spent in preparation of Discharge (in minutes): 45 Diagnosis - Discharge Diagnosis (1) Abdominal pain Status: Acute Priority: High (2) UTI (urinary tract infection) Status: Acute Priority: Medium (3) Diabetes Status: Chronic Priority: High (4) Asthma Status: Chronic Priority: Medium Hospital Course - Lab Results Lab Results: Most Recent Lab Values WBC 6.1 10^3/ul (4.5-11.0) D 07/19/18 06:40 RBC 4.38 10^6/uL (3.5-6.1) 07/19/18 06:40 Hgb 11.1 g/dL (12.0-16.0) L 07/19/18 06:40 Hct 33.3 % (36.0-48.0) L 07/19/18 06:40 MCV 76.0 fl (80.0-105.0) L 07/19/18 06:40 MCH 25.3 pg (25.0-35.0) 07/19/18 06:40 MCHC 33.3 g/dl (31.0-37.0) 07/19/18 06:40 RDW 14.1 % (11.5-14.5) 07/19/18 06:40 Plt Count 292 10^3/uL (120.0-450.0) 07/19/18 06:40 MPV 9.1 fl (7.0-11.0) 07/19/18 06:40 Gran % 68.4 % (50.0-68.0) H 07/18/18 09:35 Lymph % (Auto) 22.5 % (22.0-35.0) 07/18/18 09:35 [place] % (Auto) 3.8 % (1.0-6.0) 07/18/18 09:35 Eos % (Auto) 5.1 % (1.5-5.0) H 07/18/18 09:35 Baso % (Auto) 0.2 % (0.0-3.0) 07/18/18 09:35 Gran # 5.59 (1.4-6.5) 07/18/18 09:35 Lymph # (Auto) 1.8 (1.2-3.4) 07/18/18 09:35 [place] # (Auto) 0.3 (0.1-0.6) 07/18/18 09:35 Eos # (Auto) 0.4 (0.0-0.7) 07/18/18 09:35 Baso # (Auto) 0.02 K/mm3 (0.0-2.0) 07/18/18 09:35 Sodium 138 mmol/L (132-148) 07/19/18 06:40 Potassium 3.4 mmol/L (3.6-5.0) L 07/19/18 06:40 Chloride 108 mmol/L (98-107) H 07/19/18 06:40 Carbon Dioxide 25 mmol/L (21-33) 07/19/18 06:40 Anion Gap 9 (10-20) L 07/19/18 06:40 BUN 6 mg/dL (7-21) L 07/19/18 06:40 Creatinine 0.5 mg/dl (0.7-1.2) L 07/19/18 06:40 Est GFR ( Amer) > 60 07/19/18 06:40 Est GFR (Non-Af Amer) > 60 07/19/18 06:40 POC Glucose (mg/dL) 143 mg/dL (65-110) H 07/18/18 21:13 Random Glucose 169 mg/dL (70-110) H 07/19/18 06:40 Hemoglobin A1c 11.4 % (4.2-6.5) H 07/19/18 05:00 Calcium 8.2 mg/dL (8.4-10.5) L 07/19/18 06:40 Total Bilirubin 0.6 mg/dL (0.2-1.3) 07/19/18 06:40 AST 33 U/L (14-36) 07/19/18 06:40 ALT 21 U/L (7-56) 07/19/18 06:40 Alkaline Phosphatase 57 U/L (38-126) 07/19/18 06:40 Lactate Dehydrogenase 370 U/L (333-699) 07/18/18 09:35 Total Creatine Kinase 94 U/L (35-230) 07/18/18 09:35 Troponin I < 0.01 ng/mL 07/18/18 09:35 Total Protein 6.4 g/dL (5.8-8.3) 07/19/18 06:40 Albumin 3.2 g/dL (3.0-4.8) 07/19/18 06:40 Globulin 3.2 gm/dL 07/19/18 06:40 Albumin/Globulin Ratio 1.0 (1.1-1.8) L 07/19/18 06:40 Triglycerides 636 mg/dL (35-160) H 07/19/18 07:37 Cholesterol 170 mg/dL (130-200) 07/19/18 07:37 LDL Cholesterol Direct 39 mg/dL (0-129) 07/19/18 07:37 HDL Cholesterol 20 mg/dL (29-60) L 07/19/18 07:37 Lipase 27 U/L (23-300) 07/18/18 09:35 Urine Color Yellow (YELLOW) 07/18/18 09:15 Urine Appearance Turbid (CLEAR) 07/18/18 09:15 Urine pH 6.0 (4.7-8.0) 07/18/18 09:15 Ur Specific [place] 1.025 (1.005-1.035) 07/18/18 09:15 Urine Protein 100 mg/dL (<30 mg/dL) H 07/18/18 09:15 Urine Glucose (UA) 500 mg/dL (NEGATIVE) H 07/18/18 09:15 Urine Ketones 40 mg/dL (NEGATIVE) H 07/18/18 09:15 Urine Blood Small (NEGATIVE) H 07/18/18 09:15 Urine Nitrate Negative (NEGATIVE) 07/18/18 09:15 Urine Bilirubin Negative (NEGATIVE) 07/18/18 09:15 Urine Urobilinogen 0.2 E.U./dL (<1 E.U./dL) 07/18/18 09:15 Ur Leukocyte Esterase Trace Rahel/uL (NEGATIVE) H 07/18/18 09:15 Urine RBC 0 - 2 /hpf (0-2) 07/18/18 09:15 Urine WBC 5 - 10 /hpf (0-6) 07/18/18 09:15 Ur Epithelial Cells 4 - 5 /hpf (0-5) 07/18/18 09:15 Urine Bacteria Few (NEG) 07/18/18 09:15 Discharge Exam - Head Exam Head Exam: ATRAUMATIC, NORMAL INSPECTION, NORMOCEPHALIC - Respiratory Exam Respiratory Exam: NORMAL BREATHING PATTERN. absent: Respiratory Distress - Cardiovascular Exam Cardiovascular Exam: REGULAR RHYTHM, +S1, +S2 - GI/Abdominal Exam GI & Abdominal Exam: Normal Bowel Sounds, Unremarkable Discharge Plan - Discharge Medications Prescriptions: Ciprofloxacin HCl [Cipro] 500 mg PO BID #14 tablet Gemfibrozil [Lopid] 600 mg PO BID #60 tab Metronidazole [Flagyl] 500 mg PO Q8 #21 tablet - Follow Up Plan Condition: FAIR Disposition: HOME/ ROUTINE Instructions: Urinary Tract Infection, Adult (DC), Acute Abdomen (Belly Pain), Adult (DC), Acute Abdominal Pain (DC), Acute Abdominal Pain (GEN) Additional Instructions: 1. please follow up with your primary care physician within 1 week of discharge 2. you are being discharged with prescriptions for antibiotics 3. please complete the course of antibiotics 4. 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 if your symptoms return or worsen, please go to nearest emergency department Referrals: Fani Morse MD [Primary Care Provider] - <Matthew Nguyen - Last Filed: 07/20/18 07:21> Provider - Provider Date of Admission: 07/18/18 12:40 Attending physician: Matthew Nguyen MD Primary care physician: Fani Morse MD Hospital Course - Lab Results Lab Results: Most Recent Lab Values WBC 6.1 10^3/ul (4.5-11.0) D 07/19/18 06:40 RBC 4.38 10^6/uL (3.5-6.1) 07/19/18 06:40 Hgb 11.1 g/dL (12.0-16.0) L 07/19/18 06:40 Hct 33.3 % (36.0-48.0) L 07/19/18 06:40 MCV 76.0 fl (80.0-105.0) L 07/19/18 06:40 MCH 25.3 pg (25.0-35.0) 07/19/18 06:40 MCHC 33.3 g/dl (31.0-37.0) 07/19/18 06:40 RDW 14.1 % (11.5-14.5) 07/19/18 06:40 Plt Count 292 10^3/uL (120.0-450.0) 07/19/18 06:40 MPV 9.1 fl (7.0-11.0) 07/19/18 06:40 Gran % 68.4 % (50.0-68.0) H 07/18/18 09:35 Lymph % (Auto) 22.5 % (22.0-35.0) 07/18/18 09:35 [place] % (Auto) 3.8 % (1.0-6.0) 07/18/18 09:35 Eos % (Auto) 5.1 % (1.5-5.0) H 07/18/18 09:35 Baso % (Auto) 0.2 % (0.0-3.0) 07/18/18 09:35 Gran # 5.59 (1.4-6.5) 07/18/18 09:35 Lymph # (Auto) 1.8 (1.2-3.4) 07/18/18 09:35 [place] # (Auto) 0.3 (0.1-0.6) 07/18/18 09:35 Eos # (Auto) 0.4 (0.0-0.7) 07/18/18 09:35 Baso # (Auto) 0.02 K/mm3 (0.0-2.0) 07/18/18 09:35 Sodium 138 mmol/L (132-148) 07/19/18 06:40 Potassium 3.4 mmol/L (3.6-5.0) L 07/19/18 06:40 Chloride 108 mmol/L (98-107) H 07/19/18 06:40 Carbon Dioxide 25 mmol/L (21-33) 07/19/18 06:40 Anion Gap 9 (10-20) L 07/19/18 06:40 BUN 6 mg/dL (7-21) L 07/19/18 06:40 Creatinine 0.5 mg/dl (0.7-1.2) L 07/19/18 06:40 Est GFR ( Amer) > 60 07/19/18 06:40 Est GFR (Non-Af Amer) > 60 07/19/18 06:40 POC Glucose (mg/dL) 213 mg/dL (65-110) H 07/19/18 11:09 Random Glucose 169 mg/dL (70-110) H 07/19/18 06:40 Hemoglobin A1c 11.4 % (4.2-6.5) H 07/19/18 05:00 Calcium 8.2 mg/dL (8.4-10.5) L 07/19/18 06:40 Total Bilirubin 0.6 mg/dL (0.2-1.3) 07/19/18 06:40 AST 33 U/L (14-36) 07/19/18 06:40 ALT 21 U/L (7-56) 07/19/18 06:40 Alkaline Phosphatase 57 U/L (38-126) 07/19/18 06:40 Lactate Dehydrogenase 370 U/L (333-699) 07/18/18 09:35 Total Creatine Kinase 94 U/L (35-230) 07/18/18 09:35 Troponin I < 0.01 ng/mL 07/18/18 09:35 Total Protein 6.4 g/dL (5.8-8.3) 07/19/18 06:40 Albumin 3.2 g/dL (3.0-4.8) 07/19/18 06:40 Globulin 3.2 gm/dL 07/19/18 06:40 Albumin/Globulin Ratio 1.0 (1.1-1.8) L 07/19/18 06:40 Triglycerides 636 mg/dL (35-160) H 07/19/18 07:37 Cholesterol 170 mg/dL (130-200) 07/19/18 07:37 LDL Cholesterol Direct 39 mg/dL (0-129) 07/19/18 07:37 HDL Cholesterol 20 mg/dL (29-60) L 07/19/18 07:37 Lipase 27 U/L (23-300) 07/18/18 09:35 Urine Color Yellow (YELLOW) 07/18/18 09:15 Urine Appearance Turbid (CLEAR) 07/18/18 09:15 Urine pH 6.0 (4.7-8.0) 07/18/18 09:15 Ur Specific [place] 1.025 (1.005-1.035) 07/18/18 09:15 Urine Protein 100 mg/dL (<30 mg/dL) H 07/18/18 09:15 Urine Glucose (UA) 500 mg/dL (NEGATIVE) H 07/18/18 09:15 Urine Ketones 40 mg/dL (NEGATIVE) H 07/18/18 09:15 Urine Blood Small (NEGATIVE) H 07/18/18 09:15 Urine Nitrate Negative (NEGATIVE) 07/18/18 09:15 Urine Bilirubin Negative (NEGATIVE) 07/18/18 09:15 Urine Urobilinogen 0.2 E.U./dL (<1 E.U./dL) 07/18/18 09:15 Ur Leukocyte Esterase Trace [place]/uL (NEGATIVE) H 07/18/18 09:15 Urine RBC 0 - 2 /hpf (0-2) 07/18/18 09:15 Urine WBC 5 - 10 /hpf (0-6) 07/18/18 09:15 Ur Epithelial Cells 4 - 5 /hpf (0-5) 07/18/18 09:15 Urine Bacteria Few (NEG) 07/18/18 09:15 Discharge Exam - Eye Exam Eye Exam: EOMI - ENT Exam ENT Exam: Normal Exam - Respiratory Exam Respiratory Exam: Clear to PA & Lateral. absent: Wheezes - GI/Abdominal Exam GI & Abdominal Exam: Normal Bowel Sounds, Soft. absent: Distended, Guarding, Organomegaly, Tenderness - Extremities Exam Extremities exam: normal inspection - Neurological Exam Neurological exam: Alert, Oriented x3 - Psychiatric Exam Psychiatric exam: Normal Affect, Normal Mood Attending/Attestation - Attestation I have personally seen and examined this patient.: Yes I have fully participated in the care of the patient.: Yes I have reviewed all pertinent clinical information, including history, physical exam and plan: Yes Notes (Text): 07/19/18 42 year old female with past medical history of diabetes and asthma who presented with complaint of intractable nausea and vomiting. She also complained of increased urinary frequency. CT abd/pelvis was negative for acute findings. She was started on antibiotics for possible UTI. She was initially NPO and diet was advanced the following day which she tolerated. She was seen by GI who agreed with plan and recommended cipro/flagyl. Patient is discharged home to follow up with her pmd. Continue with antibiotics as prescribed. Matthew Nguyen MD Hospitalist.
--- NOTE | 2018-07-20 15:58 | PQF ---
PROVIDER RESPONSE TEXT: Mild intermittent REVIEWER QUERY TEXT: Asthma Specificity and Type Asthma is documented in the Medical Record. Please specify the type and severity of asthma and indic ate if this is associated with exacerbation or status asthmaticus. Such as: -- Mild intermittent -- Mild persistent -- Moderate persistent -- Severe persistent -- Exercise induced bronchospasm -- Cough variant asthma -- Other, please specify The patient's Clinical Indicators include: Please see below. Thank you. Query created by: Daya Sadler on 07/20/2018 3:47 PM Electronically signed by: Matthew Nguyen MD 07/20/2018 3:54 PM
== END 2018-07-19 14:48 | disposition home or self-care (01) ==
LOC: ED 08:28 → ERH 12:40 → 3RSO 15:19
PROVIDERS: ADMIT Hospitalist; ATTEND Internal Medicine
DX: R10.9 Unspecified abdominal pain (principal); N39.0 Urinary tract infection, site not specified; J45.20 Mild intermittent asthma, uncomplicated; E11.43 Type 2 diabetes mellitus with diabetic autonomic (poly)neuropathy; K31.84 Gastroparesis; D57.1 Sickle-cell disease without crisis; E11.65 Type 2 diabetes mellitus with hyperglycemia; Z83.3 Family history of diabetes mellitus; Z98.891 History of uterine scar from previous surgery; Z80.42 Family history of malignant neoplasm of prostate; E78.2 Mixed hyperlipidemia